=== PATIENT | male | born 1970 | race Hispanic/Latino ===

== ENCOUNTER 2023-01-02 18:58 | Inpatient (IN) | payer MEDICARE, MEDICAID ==
[~2023-01-02 18:58] MED LIST: Iopamidol 370 76% 100 ML VIAL ONE
[2023-01-02 20:07] LABS: #Basophils 0.1 10x3/uL (0.0-0.2); %Basophils 0.5 % (0.0-2.0); %Eosinophils 0.2 % (0.0-6.0); %Lymphocytes 12.2 % (18.0-47.0); %Monocytes 4.5 % (0.0-10.0); %Neutrophils 81.8 % (40.0-75.0); Hemoglobin 16.9 g/dL (13.5-17.5); Mean Corpuscular HGB CONC 37.1 g/dL (32.0-36.0); Mean Corpuscular Hemoglobin 34.6 pg (27.0-33.0); Mean Corpuscular Volume 93.4 fl (81.2-95.1); Mean Platelet Volume 10.9 fl (7.4-10.4); Platelet Count 186 10x3/uL (150-450); RBC Distribution Width 13.1 % (11.5-14.5); Red Blood Cell (RBC) Count 4.88 10x6/uL (4.32-5.72)
[2023-01-02 20:10] LABS: Bilirubin 3+ (Negative); Blood, Urine 25 (Negative); Clarity Clear (Clear); Glucose, Urine (Dipstick) Normal (Negative); Ketone, Urine 5 mg/dL (Negative); Leukocyte 100 (Negative); Nitrite Negative (Negative); Protein, Urine (Dipstick) 30 mg/dl (Neg-Trace)
[2023-01-02 20:19] LABS: ALT (SGPT) 76 U/L (8-55); AST (SGOT) 116 U/L (5-34); Albumin 3.7 g/dL (3.5-5.0); Alkaline Phosphatase 64 U/L (40-110); Anion Gap 16 mmol/L (10-20); BUN (Urea Nitrogen) 26 mg/dL (8.4-25.7); Bilirubin, Total 1.7 mg/dL (0.2-1.2); CK (CPK) 208 U/L (30-200); Calc. Creatinine Clearance 0 mL/min (70-130); Calcium 8.5 mg/dL (7.8-10.44); Carbon Dioxide 21 mmol/L (22-29); Chloride 92 mmol/L (98-107); Estimated GFR 58; Globulin 3.4 g/dL (2.4-3.5); Glucose 109 mg/dL (70-105); Lipase 94 U/L (8-78); Protein, Total 7.1 g/dL (6.0-8.3); Sodium 125 mmol/L (136-145)
[2023-01-02 20:27] LABS: INR-International Normal Ratio 1.3; MDiff Complete? YES; Manual Diff?? YES; PTT 33.3 sec (22.0-33.0); Prothrombin Time 13.6 sec (9.5-12.1)
[2023-01-02 20:28] LABS: Squamous Epithelial 0-3 HPF (0-3)
[2023-01-02 20:29] LABS: Bacteria/HPF 3+ HPF (None Seen); Mucous/LPF 2+ LPF (<2+)
[2023-01-02 20:33] LABS: Band 21 % (5-11); Lymphocytes 6 % (21-51); Metamyelocyte 4 % (0-0); Monocytes 1 % (0-10); Myelocyte 1 % (0-0); Neutrophil 66 % (42-75)
[2023-01-02 20:34] LABS: Platelet Morphology Comment Appears Adequate
[2023-01-02 20:35] LABS: RBC Morphology Normal
[2023-01-02] MEDS ORDERED: Multivitamins, Adult 10 ML, Thiamine HCl 100 MG, Folic Acid 1 MG in Dextrose 5 %-0.45 %... IV ONE (20:45)
[2023-01-02] MEDS ORDERED: Piperacillin/Tazobactam 3.375 GM VIAL ONE (21:22)
[2023-01-02] MEDS ORDERED: Ondansetron PF 4 MG/2 ML Vial IVP PRN (22:35)
[2023-01-02] MEDS ORDERED: Ondansetron ODT 4 MG TAB PO PRN (22:35)
[2023-01-02 22:44] LABS: Lactic Acid 2.5 mmol/L (0.5-2.2)
[2023-01-02] MEDS ORDERED: Potassium Chloride 20 MEQ in Lactated Ringer's 1,000 ML IV SCH (23:00)
[2023-01-02 23:18] LABS: Magnesium 2.3 mg/dL (1.6-2.6)
[2023-01-03] MEDS: Sodium Chloride 0.9% 1,000 ML IV SCH ×4 (01:30→13:12)
[2023-01-03] MEDS ORDERED: Piperacillin/Tazobactam 3.375 GM VIAL ONE ×2 (01:58→09:40)
[2023-01-03] MEDS: Piperacillin/Tazobactam 3.375 GM in Sodium Chloride 0.9% 100 ML IVPB SCH ×3 (02:19→17:50)
[2023-01-03 04:19] LABS: Hemoglobin 14.1 g/dL (13.5-17.5); Mean Corpuscular HGB CONC 37.2 g/dL (32.0-36.0); Mean Corpuscular Hemoglobin 35.1 pg (27.0-33.0); Mean Corpuscular Volume 94.3 fl (81.2-95.1); Platelet Count 171 10x3/uL (150-450); RBC Distribution Width 13.2 % (11.5-14.5); Red Blood Cell (RBC) Count 4.02 10x6/uL (4.32-5.72); White Blood Cell (WBC) Count 12.1 10x3/uL (3.5-10.5)
[2023-01-03 04:20] LABS: MDiff Complete? YES
[2023-01-03] MEDS ORDERED: Acetaminophen 325 MG TAB PO SCH (04:30)
[2023-01-03] MEDS ORDERED: VANCOMYCIN 1.75 GM/350 ML BAG 1.75 GM in Premix Bag 1 BAG IVPB ONE (04:30)
[2023-01-03] MEDS ORDERED: VANCOMYCIN 1.75 GM/350 ML BAG IVPB SCH (04:30)
[2023-01-03] MEDS ORDERED: Acetaminophen 325 MG TAB ONE (04:33)
[2023-01-03 04:40] LABS: Lactic Acid 1.4 mmol/L (0.5-2.2)
[2023-01-03 04:49] LABS: Band 24 % (5-11); Lymphocytes 8 % (21-51); Monocytes 6 % (0-10); Neutrophil 62 % (42-75)
[2023-01-03 04:50] LABS: Platelet Morphology Comment Appears Adequate; RBC Morphology Normal
[2023-01-03 04:54] LABS: ALT (SGPT) 55 U/L (8-55); AST (SGOT) 85 U/L (5-34); Albumin 2.8 g/dL (3.5-5.0); Alkaline Phosphatase 49 U/L (40-110); Anion Gap 12 mmol/L (10-20); BUN (Urea Nitrogen) 17 mg/dL (8.4-25.7); Bilirubin, Total 1.4 mg/dL (0.2-1.2); Calc. Creatinine Clearance 0 mL/min (70-130); Carbon Dioxide 19 mmol/L (22-29); Chloride 101 mmol/L (98-107); Estimated GFR 105; Globulin 2.6 g/dL (2.4-3.5); Glucose 113 mg/dL (70-105); Lipase 66 U/L (8-78); Potassium 3.6 mmol/L (3.5-5.1); Protein, Total 5.4 g/dL (6.0-8.3); Sodium 128 mmol/L (136-145)
[2023-01-03 05:03] LABS: HBSAg Index 0.15 S/CO (0-0.99); Hep B Surf Ag Non-Reactive S/CO (NonReactive)
[2023-01-03] MEDS ORDERED: Thiamine HCl 200 MG/2 ML VIAL ONE ×2 (05:30→09:40)
[2023-01-03] MEDS ORDERED: Lorazepam 1 MG TAB PO PRN (08:59)
[2023-01-03] MEDS ORDERED: Lorazepam 2 MG/ML VIAL IM PRN (08:59)
[2023-01-03] MEDS ORDERED: Multivit, Therapeutic 1 TAB PO SCH (09:00)
[2023-01-03] MEDS ORDERED: Lactated Ringer's 1,000 ML IV SCH (09:15)
[2023-01-03] MEDS ORDERED: Lorazepam 1 MG TAB ONE (09:39)
[2023-01-03] MEDS: Lorazepam 1 MG TAB PO SCH ×3 (09:50→21:09)
[2023-01-03] MEDS: Thiamine HCl 200 MG/2 ML VIAL SLOW IVP SCH (09:50)
[2023-01-03 14:10] LABS: Hep C IgG Ab Non-Reactive S/CO (NonReactive); Hep C Index 0.26 S/CO (0-0.79)
[2023-01-03 15:00] LABS: Anion Gap 15 mmol/L (10-20); Carbon Dioxide 19 mmol/L (22-29); Chloride 102 mmol/L (98-107); Potassium 4.1 mmol/L (3.5-5.1); Sodium 132 mmol/L (136-145)
[2023-01-03] MEDS: Vancomycin HCl 1 GM in Sodium Chloride 0.9% 250 ML 250 ML IVPB SCH (15:39)
[2023-01-03] MEDS ORDERED: Acetaminophen 500 MG TAB PO SCH (16:15)
[2023-01-03] MEDS: Dextrose 5%-Lactated Ringers 1,000 ML IV SCH (16:20)
[2023-01-03] MEDS ORDERED: Multivitamins, Adult 10 ML, Folic Acid 1 MG, Thiamine HCl 100 MG in Dextrose 5 %-0.45 %... IV SCH (21:00)
[2023-01-04] MEDS: Acetaminophen 325 MG TAB PO PRN ×2 (00:31→08:33)
[2023-01-04 01:13] LABS: Actual Bicarbonate (HCO3a) 17.2 mEq/L (22-28); Base Excess (BEa) -3.8 mEq/L (-2.0 to +3.0); CO2 Tension 22.9 mmHg (35.0-45.0); Calcium, Ionized (arterial) 1.04 mmol/L (1.12-1.30); Carboxyhemoglobin (COHb) 0.7 gm% (0.0-3.0); Hematocrit-ABG 45 % (42.0-52.0); Hemoglobin (Hb) 15.4 g/dL (14.0-18.0); O2 Tension (PaO2), arterial 64.1 mmHg (80.0-100.0); Puncture Site LRA; pH, Arterial 7.493 (7.35-7.45)
[2023-01-04 01:16] LABS: ALV-art Gradient 163.955 mmHg (0-20)
[2023-01-04] MEDS: Piperacillin/Tazobactam 3.375 GM in Sodium Chloride 0.9% 100 ML IVPB SCH ×3 (02:29→18:39)
[2023-01-04] MEDS ORDERED: Lactated Ringer's 1,000 ML IV SCH (02:30)
[2023-01-04] MEDS: Vancomycin HCl 1 GM in Sodium Chloride 0.9% 250 ML 250 ML IVPB SCH ×2 (03:08→15:23)
[2023-01-04] MEDS: Lorazepam 1 MG TAB PO SCH ×3 (03:08→15:24)
[2023-01-04 04:04] LABS: Hemoglobin 14.3 g/dL (13.5-17.5); Mean Corpuscular HGB CONC 36.9 g/dL (32.0-36.0); Mean Corpuscular Volume 95.1 fl (81.2-95.1); Mean Platelet Volume 12.1 fl (7.4-10.4); Platelet Count 198 10x3/uL (150-450); RBC Distribution Width 13.2 % (11.5-14.5); Red Blood Cell (RBC) Count 4.08 10x6/uL (4.32-5.72); White Blood Cell (WBC) Count 15.7 10x3/uL (3.5-10.5)
[2023-01-04 04:15] LABS: ALT (SGPT) 53 U/L (8-55); AST (SGOT) 90 U/L (5-34); Albumin 2.7 g/dL (3.5-5.0); Alkaline Phosphatase 57 U/L (40-110); Anion Gap 12 mmol/L (10-20); BUN (Urea Nitrogen) 9 mg/dL (8.4-25.7); Bilirubin, Total 1.7 mg/dL (0.2-1.2); Calc. Creatinine Clearance 127 mL/min (70-130); Calcium 7.5 mg/dL (7.8-10.44); Carbon Dioxide 18 mmol/L (22-29); Chloride 101 mmol/L (98-107); Estimated GFR 111; Globulin 2.7 g/dL (2.4-3.5); Glucose 96 mg/dL (70-105); Potassium 3.4 mmol/L (3.5-5.1); Protein, Total 5.4 g/dL (6.0-8.3); Sodium 128 mmol/L (136-145)
[2023-01-04 04:54] LABS: SARS-CoV-2 NAA Rapid Test Not Detected (NotDetected)
[2023-01-04] MEDS: Dextrose 5%-Lactated Ringers 1,000 ML IV SCH (08:03)
[2023-01-04] MEDS: Thiamine HCl 200 MG/2 ML VIAL SLOW IVP SCH (08:34)
[2023-01-04] MEDS ORDERED: Lorazepam 1 MG TAB PO PRN (08:59)
[2023-01-04] MEDS ORDERED: diphenhydrAMINE 10 MG in Sodium Chloride 0.9% 50 ML IVPB SCH (11:00)
[2023-01-04] MEDS ORDERED: Ketorolac Tromethamine 30 MG/ML VIAL IVP SCH (11:00)
[2023-01-04] MEDS ORDERED: diphenhydrAMINE 50 MG/ML VIAL IVP SCH (11:15)
[2023-01-04] MEDS ORDERED: Rocuronium Bromide 10 MG/ML (10ML VIAL) ONE (14:00)
[2023-01-04] MEDS ORDERED: Potassium Chloride 20 MEQ TAB PO SCH (15:00)
[2023-01-04 15:56] LABS: Vancomycin, Trough 5.6 ug/mL
[2023-01-04] MEDS: Sodium Chloride 0.9% 1,000 ML IV SCH (16:10)
[2023-01-04] MEDS ORDERED: Lorazepam 2 MG/ML VIAL SLOW IVP SCH ×3 (17:50→21:00)
[2023-01-04] MEDS ORDERED: Lorazepam 2 MG/ML VIAL ONE (17:54)
[2023-01-04] MEDS ORDERED: Labetalol HCl 100 MG/20 ML VIAL SLOW IVP SCH (18:00)
[2023-01-04] MEDS ORDERED: Labetalol HCl 100 MG/20 ML VIAL ONE (18:04)
[2023-01-04] MEDS ORDERED: Labetalol HCl 100 MG/20 ML VIAL SLOW IVP PRN (18:08)
[2023-01-04] MEDS ORDERED: Lorazepam 2 MG/ML VIAL SLOW IVP PRN ×2 (18:15→22:33)
[2023-01-04 19:00] LABS: Anion Gap 15 mmol/L (10-20); BUN (Urea Nitrogen) 9 mg/dL (8.4-25.7); Calc. Creatinine Clearance 133 mL/min (70-130); Calcium 7.8 mg/dL (7.8-10.44); Carbon Dioxide 17 mmol/L (22-29); Chloride 102 mmol/L (98-107); Estimated GFR 113; Glucose 88 mg/dL (70-105); Potassium 3.7 mmol/L (3.5-5.1); Sodium 130 mmol/L (136-145)
[2023-01-04] MEDS ORDERED: Thiamine HCl 200 MG/2 ML VIAL SLOW IVP SCH (21:45)
[2023-01-04] MEDS: VANCOMYCIN 1.25 GM/250 ML BAG 1.25 GM in Premix Bag 1 BAG IVPB SCH (22:24)
[2023-01-04] MEDS ORDERED: Propofol 1,000 MG/100 ML VIAL IV PRN (22:45)
[2023-01-04] MEDS ORDERED: Propofol 1,000 MG/100 ML VIAL IV SCH (22:45)
[2023-01-05 01:04] LABS: Actual Bicarbonate (HCO3a) 19.4 mEq/L (22-28); Base Excess (BEa) -2.9 mEq/L (-2.0 to +3.0); CO2 Tension 27.7 mmHg (35.0-45.0); Calcium, Ionized (arterial) 1.05 mmol/L (1.12-1.30); Hematocrit-ABG 42 % (42.0-52.0); Hemoglobin (Hb) 14.4 g/dL (14.0-18.0); O2 Tension (PaO2), arterial 78.3 mmHg (80.0-100.0); Potassium - ABG Lab 3.62 mmol/L (3.70-5.30); Puncture Site RBA; pH, Arterial 7.463 (7.35-7.45)
[2023-01-05 01:09] LABS: ALV-art Gradient 314.875 mmHg (0-20)
[2023-01-05] MEDS: Sodium Chloride 0.9% 1,000 ML IV SCH ×2 (01:47→11:25)
[2023-01-05] MEDS: FENTANYL 2,000MCG/100-0.9%NACL 100 ML IVPB SCH ×3 (02:03→23:45)
[2023-01-05] MEDS ORDERED: DISCONTINUE PREVIOUS NARCOTIC PAIN MEDICATIONS AND BENZODIAZEPINES FS SCH (02:15)
[2023-01-05] MEDS ORDERED: Propofol BOLUS 1,000 MG/100 ML VIAL IV PRN (02:15)
[2023-01-05] MEDS ORDERED: Fentanyl BOLUS 250 ML IVPB PRN (02:15)
[2023-01-05] MEDS ORDERED: Morphine 2 MG/ML VIAL SLOW IVP PRN (02:15)
[2023-01-05] MEDS: Piperacillin/Tazobactam 3.375 GM in Sodium Chloride 0.9% 100 ML IVPB SCH ×3 (02:21→17:05)
[2023-01-05] MEDS ORDERED: NOREPINEPHRINE 8 MG/250 ML-D5W 250 ML ONE (03:19)
[2023-01-05] MEDS: NOREPINEPHRINE 8 MG/250 ML-D5W 250 ML IVPB SCH ×2 (03:23→18:41)
[2023-01-05 04:36] LABS: Hemoglobin 13.5 g/dL (13.5-17.5); Mean Corpuscular HGB CONC 36.5 g/dL (32.0-36.0); Mean Corpuscular Hemoglobin 34.7 pg (27.0-33.0); Mean Corpuscular Volume 95.1 fl (81.2-95.1); Mean Platelet Volume 11.9 fl (7.4-10.4); Platelet Count 256 10x3/uL (150-450); RBC Distribution Width 13.6 % (11.5-14.5); Red Blood Cell (RBC) Count 3.89 10x6/uL (4.32-5.72); White Blood Cell (WBC) Count 15.6 10x3/uL (3.5-10.5)
[2023-01-05 04:49] LABS: ALT (SGPT) 56 U/L (8-55); AST (SGOT) 113 U/L (5-34); Albumin 2.5 g/dL (3.5-5.0); Alkaline Phosphatase 106 U/L (40-110); Anion Gap 12 mmol/L (10-20); BUN (Urea Nitrogen) 10 mg/dL (8.4-25.7); Bilirubin, Total 2.5 mg/dL (0.2-1.2); Calc. Creatinine Clearance 129 mL/min (70-130); Calcium 7.3 mg/dL (7.8-10.44); Carbon Dioxide 19 mmol/L (22-29); Chloride 104 mmol/L (98-107); Estimated GFR 112; Globulin 2.7 g/dL (2.4-3.5); Glucose 115 mg/dL (70-105); Magnesium 2.3 mg/dL (1.6-2.6); Protein, Total 5.2 g/dL (6.0-8.3); Sodium 131 mmol/L (136-145)
[2023-01-05 04:57] LABS: MDiff Complete? YES
[2023-01-05 04:58] LABS: D-Dimer Test 2.28 mg/L FEU (0.19-0.50); INR-International Normal Ratio 1.3; PTT 33.6 sec (22.0-33.0); Prothrombin Time 13.5 sec (9.5-12.1)
[2023-01-05 05:05] LABS: Syphilis Antibody Nonreactive (Nonreactive); Syphilis Antibody Index 0.05 S/CO (<1.00 Non-Reactive)
[2023-01-05 05:24] LABS: Actual Bicarbonate (HCO3a) 18.5 mEq/L (22-28); Base Excess (BEa) -5.7 mEq/L (-2.0 to +3.0); CO2 Tension 32.9 mmHg (35.0-45.0); Calcium, Ionized (arterial) 1.05 mmol/L (1.12-1.30); Carboxyhemoglobin (COHb) 0.2 gm% (0.0-3.0); Hematocrit-ABG 43 % (42.0-52.0); Hemoglobin (Hb) 14.5 g/dL (14.0-18.0); O2 Tension (PaO2), arterial 120.4 mmHg (80.0-100.0); Potassium - ABG Lab 3.71 mmol/L (3.70-5.30); Puncture Site RBA; pH, Arterial 7.369 (7.35-7.45)
[2023-01-05 05:28] LABS: ALV-art Gradient 266.275 mmHg (0-20)
[2023-01-05 05:44] LABS: Band 19 % (5-11); Lymphocytes 14 % (21-51); Monocytes 5 % (0-10); Neutrophil 62 % (42-75)
[2023-01-05 05:46] LABS: Platelet Morphology Comment Appears Adequate; RBC Morphology Normal
[2023-01-05] MEDS: VANCOMYCIN 1.25 GM/250 ML BAG 1.25 GM in Premix Bag 1 BAG IVPB SCH ×3 (05:59→21:26)
[2023-01-05] MEDS: Propofol 1,000 MG/100 ML VIAL IV PRN ×2 (06:03→14:02)
[2023-01-05 08:02] LABS: Actual Bicarbonate (HCO3a) 18.8 mEq/L (22-28); Base Excess (BEa) -8.2 mEq/L (-2.0 to +3.0); CO2 Tension 43.6 mmHg (35.0-45.0); Calcium, Ionized (arterial) 1.11 mmol/L (1.12-1.30); Carboxyhemoglobin (COHb) 0.4 gm% (0.0-3.0); Hematocrit-ABG 48 % (42.0-52.0); Hemoglobin (Hb) 16.3 g/dL (14.0-18.0); O2 Tension (PaO2), arterial 265.6 mmHg (80.0-100.0); Potassium - ABG Lab 4.03 mmol/L (3.70-5.30); Puncture Site RBA; RapidComm Collect By CP.BR1; pH, Arterial 7.252 (7.35-7.45)
[2023-01-05] MEDS: Thiamine HCl 200 MG/2 ML VIAL SLOW IVP SCH (08:53)
[2023-01-05] MEDS ORDERED: Lorazepam 2 MG/ML VIAL SLOW IVP PRN (08:59)
[2023-01-05] MEDS ORDERED: Lorazepam 2 MG/ML VIAL SLOW IVP SCH ×2 (09:00)
[2023-01-05] MEDS ORDERED: Lorazepam 0.5 MG TAB PO SCH (09:00)
[2023-01-05 09:34] LABS: Lactic Acid 1.6 mmol/L (0.5-2.2)
[2023-01-05] MEDS: Lorazepam 2 MG/ML VIAL SLOW IVP PRN (12:30)
[2023-01-05] MEDS ORDERED: Rocuronium Bromide 50 MG/5 ML VIAL IVP SCH (13:00)
[2023-01-05] MEDS: Ipratropium/Albuterol 3 ML NEB EZPAP PRN ×3 (13:30→23:00)
[2023-01-05] MEDS: Acetaminophen 325 MG TAB PO PRN (16:02)
[2023-01-05] MEDS ORDERED: Rocuronium Bromide 10 MG/ML (10ML VIAL) ONE (18:18)
[2023-01-05] MEDS: Famotidine 20 MG TAB PO SCH (21:25)
[2023-01-05] MEDS: Folic Acid 1 MG TAB PO SCH (21:25)
[2023-01-05] MEDS: Multivitamin W/ Minerals 1 TAB PO SCH (21:25)
[2023-01-05 22:15] LABS: Vancomycin, Trough 18.8 ug/mL
[2023-01-06] MEDS: Acetaminophen 325 MG TAB PO PRN ×2 (00:54→18:24)
[2023-01-06] MEDS: Piperacillin/Tazobactam 3.375 GM in Sodium Chloride 0.9% 100 ML IVPB SCH ×3 (01:01→18:33)
[2023-01-06] MEDS: Ipratropium/Albuterol 3 ML NEB EZPAP PRN ×2 (02:30→07:19)
[2023-01-06] MEDS: Propofol 1,000 MG/100 ML VIAL IV PRN ×4 (02:50→19:37)
[2023-01-06 04:06] LABS: Hemoglobin 13.1 g/dL (13.5-17.5); Mean Corpuscular HGB CONC 35.9 g/dL (32.0-36.0); Mean Corpuscular Hemoglobin 34.4 pg (27.0-33.0); Mean Corpuscular Volume 95.8 fl (81.2-95.1); Mean Platelet Volume 11.4 fl (7.4-10.4); Platelet Count 350 10x3/uL (150-450); RBC Distribution Width 14.5 % (11.5-14.5); Red Blood Cell (RBC) Count 3.81 10x6/uL (4.32-5.72); White Blood Cell (WBC) Count 15.1 10x3/uL (3.5-10.5)
[2023-01-06 04:12] LABS: MDiff Complete? YES
[2023-01-06 04:21] LABS: ALT (SGPT) 57 U/L (8-55); AST (SGOT) 99 U/L (5-34); Albumin 2.3 g/dL (3.5-5.0); Alkaline Phosphatase 101 U/L (40-110); Anion Gap 12 mmol/L (10-20); BUN (Urea Nitrogen) 8 mg/dL (8.4-25.7); Bilirubin, Direct 2.3 mg/dL (0.1-0.3); Bilirubin, Total 3.1 mg/dL (0.2-1.2); Calc. Creatinine Clearance 122 mL/min (70-130); Calcium 7.3 mg/dL (7.8-10.44); Carbon Dioxide 20 mmol/L (22-29); Chloride 102 mmol/L (98-107); Estimated GFR 110; Glucose 153 mg/dL (70-105); Potassium 3.3 mmol/L (3.5-5.1); Protein, Total 5.1 g/dL (6.0-8.3); Sodium 131 mmol/L (136-145)
[2023-01-06 04:52] LABS: Band 19 % (5-11); Eosinophils 1 % (0-10); Lymphocytes 12 % (21-51); Monocytes 4 % (0-10); Neutrophil 64 % (42-75); Nucleated RBC (Manual Ct) 2 % (0)
[2023-01-06 04:54] LABS: Platelet Morphology Comment Appears Adequate; RBC Morphology Normal
[2023-01-06 04:57] LABS: Vancomycin, Trough 21.6 ug/mL
[2023-01-06] MEDS: Vancomycin HCl 1 GM in Sodium Chloride 0.9% 250 ML 250 ML IVPB SCH ×3 (05:34→21:24)
[2023-01-06] MEDS: VANCOMYCIN 1.25 GM/250 ML BAG 1.25 GM in Premix Bag 1 BAG IVPB SCH (06:21)
[2023-01-06] MEDS ORDERED: Potassium Bicarbonate/Cit Ac 20 MEQ TAB PO SCH (06:45)
[2023-01-06] MEDS: FENTANYL 2,000MCG/100-0.9%NACL 100 ML IVPB SCH ×2 (08:43→19:37)
[2023-01-06] MEDS: Famotidine 20 MG TAB PO SCH ×2 (08:43→21:23)
[2023-01-06] MEDS: Thiamine 100 MG TAB PO SCH (08:44)
[2023-01-06] MEDS ORDERED: Lorazepam 2 MG/ML VIAL SLOW IVP PRN (08:59)
[2023-01-06] MEDS: NOREPINEPHRINE 8 MG/250 ML-D5W 250 ML IVPB SCH (13:08)
[2023-01-06] MEDS ORDERED: Tuberculin PPD 0.1 ML VIAL I-DERMAL SCH (21:00)
[2023-01-06] MEDS: Folic Acid 1 MG TAB PO SCH (21:24)
[2023-01-06] MEDS: Multivitamin W/ Minerals 1 TAB PO SCH (21:24)
[2023-01-06 22:52] LABS: Anion Gap 13 mmol/L (10-20); BUN (Urea Nitrogen) 6 mg/dL (8.4-25.7); Calc. Creatinine Clearance 140 mL/min (70-130); Calcium 7.5 mg/dL (7.8-10.44); Carbon Dioxide 23 mmol/L (22-29); Chloride 101 mmol/L (98-107); Estimated GFR 110; Glucose 148 mg/dL (70-105); Potassium 3.5 mmol/L (3.5-5.1); Sodium 133 mmol/L (136-145)
[2023-01-07] MEDS: Piperacillin/Tazobactam 3.375 GM in Sodium Chloride 0.9% 100 ML IVPB SCH ×3 (02:21→17:36)
[2023-01-07] MEDS: Propofol 1,000 MG/100 ML VIAL IV PRN ×4 (03:08→19:56)
[2023-01-07] MEDS: FENTANYL 2,000MCG/100-0.9%NACL 100 ML IVPB SCH ×3 (03:44→23:28)
[2023-01-07 04:48] LABS: Hemoglobin 12.5 g/dL (13.5-17.5); Mean Corpuscular HGB CONC 36.3 g/dL (32.0-36.0); Mean Corpuscular Hemoglobin 34.9 pg (27.0-33.0); Mean Corpuscular Volume 96.1 fl (81.2-95.1); Mean Platelet Volume 11.2 fl (7.4-10.4); Platelet Count 426 10x3/uL (150-450); RBC Distribution Width 14.5 % (11.5-14.5); Red Blood Cell (RBC) Count 3.58 10x6/uL (4.32-5.72); White Blood Cell (WBC) Count 13.4 10x3/uL (3.5-10.5)
[2023-01-07 04:49] LABS: MDiff Complete? YES
[2023-01-07 05:01] LABS: ALT (SGPT) 46 U/L (8-55); AST (SGOT) 85 U/L (5-34); Albumin 2.1 g/dL (3.5-5.0); Alkaline Phosphatase 115 U/L (40-110); Anion Gap 12 mmol/L (10-20); BUN (Urea Nitrogen) 6 mg/dL (8.4-25.7); Bilirubin, Total 3.2 mg/dL (0.2-1.2); Calc. Creatinine Clearance 148 mL/min (70-130); Calcium 7.4 mg/dL (7.8-10.44); Carbon Dioxide 24 mmol/L (22-29); Chloride 101 mmol/L (98-107); Estimated GFR 112; Globulin 2.9 g/dL (2.4-3.5); Glucose 152 mg/dL (70-105); Potassium 3.3 mmol/L (3.5-5.1); Sodium 134 mmol/L (136-145)
[2023-01-07 05:25] LABS: Vancomycin, Trough 12.5 ug/mL
[2023-01-07] MEDS: Vancomycin HCl 1 GM in Sodium Chloride 0.9% 250 ML 250 ML IVPB SCH ×4 (06:02→23:28)
[2023-01-07 06:17] LABS: Band 4 % (5-11); Eosinophils 2 % (0-10); Lymphocytes 14 % (21-51); Monocytes 4 % (0-10); Neutrophil 75 % (42-75); Nucleated RBC (Manual Ct) 2 % (0); Reactive Lymphocytes 1 % (0-10)
[2023-01-07 06:19] LABS: RBC Morph Comment NORMAL
[2023-01-07 06:20] LABS: Large Platelets SLIGHT; Platelet Clumps SLIGHT; Platelet Morphology Comment Appears Increased
[2023-01-07] MEDS: Ipratropium/Albuterol 3 ML NEB EZPAP PRN (07:44)
[2023-01-07] MEDS: Famotidine 20 MG TAB PO SCH ×2 (08:20→21:22)
[2023-01-07] MEDS: Thiamine 100 MG TAB PO SCH (08:20)
[2023-01-07] MEDS: NOREPINEPHRINE 8 MG/250 ML-D5W 250 ML IVPB SCH (08:59)
[2023-01-07] MEDS ORDERED: Furosemide 40 MG/4 ML VIAL SLOW IVP SCH (11:00)
[2023-01-07] MEDS: Acetaminophen 325 MG TAB PO PRN (11:27)
[2023-01-07] MEDS: Folic Acid 1 MG TAB PO SCH (21:22)
[2023-01-07] MEDS: Multivitamin W/ Minerals 1 TAB PO SCH (21:22)
[2023-01-08] MEDS: Propofol 1,000 MG/100 ML VIAL IV PRN ×5 (01:47→23:41)
[2023-01-08] MEDS: Piperacillin/Tazobactam 3.375 GM in Sodium Chloride 0.9% 100 ML IVPB SCH ×3 (01:47→17:20)
[2023-01-08] MEDS: Acetaminophen 325 MG TAB PO PRN ×2 (02:25→21:15)
[2023-01-08 05:13] LABS: Hemoglobin 12.5 g/dL (13.5-17.5); Mean Corpuscular HGB CONC 36.2 g/dL (32.0-36.0); Mean Corpuscular Volume 96.6 fl (81.2-95.1); Mean Platelet Volume 10.9 fl (7.4-10.4); Platelet Count 511 10x3/uL (150-450); RBC Distribution Width 14.7 % (11.5-14.5); Red Blood Cell (RBC) Count 3.57 10x6/uL (4.32-5.72); White Blood Cell (WBC) Count 13.2 10x3/uL (3.5-10.5)
[2023-01-08 05:20] LABS: ALT (SGPT) 45 U/L (8-55); AST (SGOT) 97 U/L (5-34); Albumin 2.3 g/dL (3.5-5.0); Alkaline Phosphatase 173 U/L (40-110); Anion Gap 14 mmol/L (10-20); BUN (Urea Nitrogen) 7 mg/dL (8.4-25.7); Bilirubin, Total 2.2 mg/dL (0.2-1.2); Calc. Creatinine Clearance 136 mL/min (70-130); Calcium 7.8 mg/dL (7.8-10.44); Carbon Dioxide 26 mmol/L (22-29); Chloride 100 mmol/L (98-107); Estimated GFR 109; Globulin 3.4 g/dL (2.4-3.5); Glucose 149 mg/dL (70-105); Potassium 3.1 mmol/L (3.5-5.1); Protein, Total 5.7 g/dL (6.0-8.3); Sodium 137 mmol/L (136-145)
[2023-01-08 05:23] LABS: MDiff Complete? YES
[2023-01-08 05:29] LABS: HIV (1/2) Antibody/Antigen Non-Reactive (NonReactive); HIV 1/2 INDEX 0.08 S/CO (<1.00)
[2023-01-08 06:37] LABS: Band 6 % (5-11); Eosinophils 2 % (0-10); Lymphocytes 7 % (21-51); Monocytes 6 % (0-10); Neutrophil 79 % (42-75); Nucleated RBC (Manual Ct) 8 % (0)
[2023-01-08 06:39] LABS: Platelet Morphology Comment Appears Adequate; RBC Morph Comment NORMAL
[2023-01-08 07:26] LABS: Vancomycin, Trough 12.7 ug/mL
[2023-01-08 07:33] LABS: Magnesium 2.2 mg/dL (1.6-2.6)
[2023-01-08] MEDS: Famotidine 20 MG TAB PO SCH ×2 (09:16→21:16)
[2023-01-08] MEDS: Thiamine 100 MG TAB PO SCH (09:16)
[2023-01-08] MEDS: Vancomycin HCl 1 GM in Sodium Chloride 0.9% 250 ML 250 ML IVPB SCH ×3 (09:17→23:57)
[2023-01-08] MEDS ORDERED: Furosemide 40 MG/4 ML VIAL SLOW IVP SCH (10:00)
[2023-01-08] MEDS ORDERED: Potassium Chloride 20 MEQ in Premix Bag 1 BAG IVPB SCH (10:00)
[2023-01-08] MEDS: FENTANYL 2,000MCG/100-0.9%NACL 100 ML IVPB SCH ×2 (12:30→20:32)
[2023-01-08] MEDS ORDERED: Docusate Sodium 100 MG/10 ML UDCUP PO PRN (13:50)
[2023-01-08] MEDS ORDERED: Milk Of Magnesia 30 ML UDCUP PO PRN (13:52)
[2023-01-08] MEDS ORDERED: Dexmedetomidine In 0.9 % NaCl 400 MCG in Premix Bag 1 BAG IVPB SCH (17:15)
[2023-01-08] MEDS: NOREPINEPHRINE 8 MG/250 ML-D5W 250 ML IVPB SCH (20:32)
[2023-01-08] MEDS: Multivitamin W/ Minerals 1 TAB PO SCH (21:15)
[2023-01-08] MEDS: READ PPD TEST SITE PO SCH (21:16)
[2023-01-08] MEDS: Folic Acid 1 MG TAB PO SCH (21:16)
[2023-01-09 01:57] VITALS: TEMP 97.8
[2023-01-09] MEDS: Piperacillin/Tazobactam 3.375 GM in Sodium Chloride 0.9% 100 ML IVPB SCH ×3 (02:37→19:12)
[2023-01-09 04:16] LABS: Anion Gap 13 mmol/L (10-20); BUN (Urea Nitrogen) 7 mg/dL (8.4-25.7); Calc. Creatinine Clearance 149 mL/min (70-130); Carbon Dioxide 27 mmol/L (22-29); Chloride 103 mmol/L (98-107); Estimated GFR 111; Glucose 165 mg/dL (70-105); Potassium 3.1 mmol/L (3.5-5.1); Sodium 140 mmol/L (136-145)
[2023-01-09] MEDS: Midodrine HCl 5 MG TAB PO SCH ×2 (05:31→14:21)
[2023-01-09] MEDS: Propofol 1,000 MG/100 ML VIAL IV PRN (05:32)
[2023-01-09 07:17] LABS: Vancomycin, Trough 14.7 ug/mL
[2023-01-09] MEDS: Famotidine 20 MG TAB PO SCH ×2 (08:01→21:32)
[2023-01-09] MEDS: Thiamine 100 MG TAB PO SCH (08:02)
[2023-01-09] MEDS: Vancomycin HCl 1 GM in Sodium Chloride 0.9% 250 ML 250 ML IVPB SCH ×2 (08:05→16:56)
[2023-01-09] MEDS: FENTANYL 2,000MCG/100-0.9%NACL 100 ML IVPB SCH (08:12)
[2023-01-09] MEDS: Dexmedetomidine In 0.9 % NaCl 400 MCG in Premix Bag 1 BAG IVPB SCH ×4 (11:01→20:42)
[2023-01-09] MEDS: Acetaminophen 325 MG TAB PO PRN (11:40)
[2023-01-09] MEDS ORDERED: Potassium Chloride 40 MEQ in Premix Bag 1 BAG IVPB SCH (14:00)
[2023-01-09] MEDS ORDERED: Electrolyte Replacement Protocol 1 EACH FS SCH (14:00)
[2023-01-09] MEDS: Potassium Chloride 20 MEQ in Premix Bag 1 BAG IVPB SCH ×2 (15:14→16:58)
[2023-01-09] MEDS ORDERED: Furosemide 20 MG/2 ML VIAL SLOW IVP SCH (17:00)
[2023-01-09] MEDS ORDERED: Furosemide 40 MG/4 ML VIAL SLOW IVP SCH (17:30)
[2023-01-09] MEDS: Folic Acid 1 MG TAB PO SCH (21:32)
[2023-01-09] MEDS: Multivitamin W/ Minerals 1 TAB PO SCH (21:32)
[2023-01-09] MEDS: Lorazepam 2 MG/ML VIAL SLOW IVP PRN (21:57)
[2023-01-09] MEDS: READ PPD TEST SITE PO SCH (22:33)
[2023-01-10] MEDS: Dexmedetomidine In 0.9 % NaCl 400 MCG in Premix Bag 1 BAG IVPB SCH ×5 (00:13→16:32)
[2023-01-10] MEDS: Piperacillin/Tazobactam 3.375 GM in Sodium Chloride 0.9% 100 ML IVPB SCH ×3 (02:58→17:41)
[2023-01-10 03:26] LABS: Hemoglobin 12.3 g/dL (13.5-17.5); Mean Corpuscular HGB CONC 35.5 g/dL (32.0-36.0); Mean Corpuscular Hemoglobin 34.8 pg (27.0-33.0); Mean Platelet Volume 10.2 fl (7.4-10.4); Platelet Count 537 10x3/uL (150-450); RBC Distribution Width 16.4 % (11.5-14.5); Red Blood Cell (RBC) Count 3.53 10x6/uL (4.32-5.72); White Blood Cell (WBC) Count 13.4 10x3/uL (3.5-10.5)
[2023-01-10 03:37] LABS: ALT (SGPT) 32 U/L (8-55); AST (SGOT) 69 U/L (5-34); Albumin 2.6 g/dL (3.5-5.0); Alkaline Phosphatase 163 U/L (40-110); Anion Gap 12 mmol/L (10-20); BUN (Urea Nitrogen) 9 mg/dL (8.4-25.7); Bilirubin, Total 1.3 mg/dL (0.2-1.2); Calc. Creatinine Clearance 0 mL/min (70-130); Calcium 8.2 mg/dL (7.8-10.44); Carbon Dioxide 26 mmol/L (22-29); Chloride 105 mmol/L (98-107); Estimated GFR 111; Globulin 3.5 g/dL (2.4-3.5); Glucose 201 mg/dL (70-105); Potassium 3.7 mmol/L (3.5-5.1); Protein, Total 6.1 g/dL (6.0-8.3); Sodium 139 mmol/L (136-145)
[2023-01-10 03:39] LABS: MDiff Complete? YES; Manual Diff?? YES
[2023-01-10 03:43] LABS: Band 6 % (5-11); Eosinophils 4 % (0-10); Lymphocytes 30 % (21-51); Monocytes 4 % (0-10); Neutrophil 56 % (42-75); Nucleated RBC (Manual Ct) 10 % (0)
[2023-01-10 03:45] LABS: Platelet Morphology Comment Appears Increased; Polychromasia SLIGHT = 2-3 cells (100X) (0-2/hpf)
[2023-01-10] MEDS: Thiamine 100 MG TAB PO SCH (08:18)
[2023-01-10] MEDS: Famotidine 20 MG TAB PO SCH ×3 (08:18→20:45)
[2023-01-10] MEDS ORDERED: Dextrose 50% Abboject 50 ML SYRINGE SLOW IVP PRN (11:56)
[2023-01-10] MEDS ORDERED: HumaLOG 300 UNITS/3 ML VIAL SC PRN ×2 (11:56)
[2023-01-10] MEDS ORDERED: Dextrose 5% in Water 1,000 ML IV PRN (11:56)
[2023-01-10] MEDS ORDERED: Furosemide 100 MG/10 ML VIAL SLOW IVP SCH (12:30)
[2023-01-10 12:32] LABS: ANA Symphony (Qualitative) Negative (Negative); ANA Symphony (Quantitative) 0.3 Ratio (< 0.7 Negative); dsDNA IgG Antibody 0.7 IU/mL (<10 Negative)
[2023-01-10 18:10] LABS: QuantiFERON-TB Gold Plus Negative (Negative)
[2023-01-10] MEDS: Multivitamin W/ Minerals 1 TAB PO SCH ×2 (20:38→20:46)
[2023-01-10] MEDS: Folic Acid 1 MG TAB PO SCH ×2 (20:38→20:46)
[2023-01-10] MEDS ORDERED: Famotidine/PF 20 mg/2ml Vial SLOW IVP SCH (21:15)
[2023-01-11] MEDS: Piperacillin/Tazobactam 3.375 GM in Sodium Chloride 0.9% 100 ML IVPB SCH ×2 (01:21→11:35)
[2023-01-11 05:48] LABS: ALT (SGPT) 33 U/L (8-55); AST (SGOT) 68 U/L (5-34); Albumin 2.7 g/dL (3.5-5.0); Alkaline Phosphatase 134 U/L (40-110); Anion Gap 14 mmol/L (10-20); BUN (Urea Nitrogen) 11 mg/dL (8.4-25.7); Bilirubin, Total 1.2 mg/dL (0.2-1.2); Calc. Creatinine Clearance 166 mL/min (70-130); Calcium 8.4 mg/dL (7.8-10.44); Carbon Dioxide 23 mmol/L (22-29); Chloride 107 mmol/L (98-107); Estimated GFR 115; Globulin 3.4 g/dL (2.4-3.5); Glucose 95 mg/dL (70-105); Potassium 3.3 mmol/L (3.5-5.1); Protein, Total 6.1 g/dL (6.0-8.3); Sodium 141 mmol/L (136-145)
[2023-01-11 05:56] LABS: #Basophils 0.1 10x3/uL (0.0-0.2); #Eosinphils 0.1 10x3/uL (0.0-0.5); #Monocytes 0.9 10x3/uL (0.0-1.1); #Neutrophils 7.9 10x3/uL (1.5-8.4); %Basophils 0.7 % (0.0-2.0); %Eosinophils 0.8 % (0.0-6.0); %Lymphocytes 29.8 % (18.0-47.0); %Monocytes 6.8 % (0.0-10.0); %Neutrophils 60.4 % (40.0-75.0); Hemoglobin 11.6 g/dL (13.5-17.5); Mean Corpuscular HGB CONC 34.6 g/dL (32.0-36.0); Mean Corpuscular Hemoglobin 34.2 pg (27.0-33.0); Mean Corpuscular Volume 98.8 fl (81.2-95.1); Mean Platelet Volume 10.5 fl (7.4-10.4); Platelet Count 533 10x3/uL (150-450); RBC Distribution Width 16.5 % (11.5-14.5); Red Blood Cell (RBC) Count 3.39 10x6/uL (4.32-5.72); White Blood Cell (WBC) Count 13.1 10x3/uL (3.5-10.5)
[2023-01-11] MEDS: Potassium Chloride 20 MEQ in Premix Bag 1 BAG IVPB SCH ×2 (06:09→07:53)
[2023-01-11] MEDS: Famotidine 20 MG TAB PO SCH (08:16)
[2023-01-11] MEDS: Thiamine 100 MG TAB PO SCH (09:43)
[2023-01-11] MEDS: Multivitamin W/ Minerals 1 TAB PO SCH (20:06)
[2023-01-11] MEDS: Folic Acid 1 MG TAB PO SCH (20:06)
[2023-01-11] MEDS: Famotidine/PF 20 mg/2ml Vial SLOW IVP SCH (20:08)
[2023-01-12 05:26] LABS: #Basophils 0.1 10x3/uL (0.0-0.2); #Eosinphils 0.2 10x3/uL (0.0-0.5); #Monocytes 1.1 10x3/uL (0.0-1.1); #Neutrophils 6.6 10x3/uL (1.5-8.4); %Basophils 0.8 % (0.0-2.0); %Eosinophils 1.3 % (0.0-6.0); %Lymphocytes 29.1 % (18.0-47.0); %Monocytes 9.6 % (0.0-10.0); %Neutrophils 58.3 % (40.0-75.0); Hemoglobin 12.2 g/dL (13.5-17.5); Mean Corpuscular Hemoglobin 34.9 pg (27.0-33.0); Mean Corpuscular Volume 99.7 fl (81.2-95.1); Mean Platelet Volume 10.3 fl (7.4-10.4); Platelet Count 543 10x3/uL (150-450); RBC Distribution Width 16.3 % (11.5-14.5); White Blood Cell (WBC) Count 11.4 10x3/uL (3.5-10.5)
[2023-01-12 05:35] LABS: ALT (SGPT) 36 U/L (8-55); AST (SGOT) 77 U/L (5-34); Alkaline Phosphatase 128 U/L (40-110); Anion Gap 14 mmol/L (10-20); BUN (Urea Nitrogen) 10 mg/dL (8.4-25.7); Bilirubin, Total 1.3 mg/dL (0.2-1.2); Calc. Creatinine Clearance 170 mL/min (70-130); Calcium 8.4 mg/dL (7.8-10.44); Carbon Dioxide 21 mmol/L (22-29); Chloride 109 mmol/L (98-107); Estimated GFR 116; Globulin 3.5 g/dL (2.4-3.5); Glucose 83 mg/dL (70-105); Potassium 3.6 mmol/L (3.5-5.1); Protein, Total 6.5 g/dL (6.0-8.3); Sodium 140 mmol/L (136-145)
[2023-01-12] MEDS: Famotidine/PF 20 mg/2ml Vial SLOW IVP SCH ×2 (08:05→20:35)
[2023-01-12] MEDS: Thiamine 100 MG TAB PO SCH (08:05)
[2023-01-12] MEDS ORDERED: Furosemide 40 MG/4 ML VIAL SLOW IVP SCH (09:30)
[2023-01-12] MEDS: D5W-AA 4.25% with LYTES 1,000 ML IV SCH (10:38)
[2023-01-12] MEDS: Multivitamin W/ Minerals 1 TAB PO SCH (20:35)
[2023-01-12] MEDS: Folic Acid 1 MG TAB PO SCH (20:35)
[2023-01-13] MEDS: D5W-AA 4.25% with LYTES 1,000 ML IV SCH ×2 (04:54→22:08)
[2023-01-13 05:18] LABS: #Basophils 0.2 10x3/uL (0.0-0.2); #Eosinphils 0.2 10x3/uL (0.0-0.5); #Monocytes 1.2 10x3/uL (0.0-1.1); %Basophils 1.3 % (0.0-2.0); %Eosinophils 1.9 % (0.0-6.0); %Lymphocytes 32.7 % (18.0-47.0); %Monocytes 10.4 % (0.0-10.0); %Neutrophils 53.1 % (40.0-75.0); Hemoglobin 13.6 g/dL (13.5-17.5); Mean Corpuscular Hemoglobin 34.7 pg (27.0-33.0); Mean Corpuscular Volume 99.2 fl (81.2-95.1); Mean Platelet Volume 9.8 fl (7.4-10.4); Platelet Count 572 10x3/uL (150-450); RBC Distribution Width 16.6 % (11.5-14.5); Red Blood Cell (RBC) Count 3.92 10x6/uL (4.32-5.72); White Blood Cell (WBC) Count 11.3 10x3/uL (3.5-10.5)
[2023-01-13 05:33] LABS: ALT (SGPT) 51 U/L (8-55); AST (SGOT) 95 U/L (5-34); Albumin 3.3 g/dL (3.5-5.0); Alkaline Phosphatase 122 U/L (40-110); Anion Gap 14 mmol/L (10-20); BUN (Urea Nitrogen) 12 mg/dL (8.4-25.7); Bilirubin, Total 1.4 mg/dL (0.2-1.2); Calc. Creatinine Clearance 167 mL/min (70-130); Calcium 8.7 mg/dL (7.8-10.44); Carbon Dioxide 22 mmol/L (22-29); Chloride 107 mmol/L (98-107); Estimated GFR 115; Globulin 3.9 g/dL (2.4-3.5); Glucose 105 mg/dL (70-105); Potassium 3.7 mmol/L (3.5-5.1); Protein, Total 7.2 g/dL (6.0-8.3); Sodium 139 mmol/L (136-145)
[2023-01-13] MEDS: Famotidine/PF 20 mg/2ml Vial SLOW IVP SCH ×2 (08:14→22:10)
[2023-01-13] MEDS: Furosemide 40 MG/4 ML VIAL SLOW IVP SCH (08:14)
[2023-01-13] MEDS: Thiamine 100 MG TAB PO SCH (08:15)
[2023-01-13] MEDS: Folic Acid 1 MG TAB PO SCH (22:10)
[2023-01-13] MEDS: Multivitamin W/ Minerals 1 TAB PO SCH (22:10)
[2023-01-14 04:07] LABS: #Basophils 0.2 10x3/uL (0.0-0.2); #Eosinphils 0.2 10x3/uL (0.0-0.5); #Monocytes 1.1 10x3/uL (0.0-1.1); #Neutrophils 5.3 10x3/uL (1.5-8.4); %Basophils 1.5 % (0.0-2.0); %Eosinophils 1.4 % (0.0-6.0); %Lymphocytes 39.2 % (18.0-47.0); %Monocytes 9.5 % (0.0-10.0); %Neutrophils 47.7 % (40.0-75.0); Hemoglobin 14.4 g/dL (13.5-17.5); Mean Corpuscular HGB CONC 34.4 g/dL (32.0-36.0); Mean Corpuscular Hemoglobin 34.2 pg (27.0-33.0); Mean Corpuscular Volume 99.5 fl (81.2-95.1); Mean Platelet Volume 10.3 fl (7.4-10.4); Platelet Count 603 10x3/uL (150-450); RBC Distribution Width 16.2 % (11.5-14.5); Red Blood Cell (RBC) Count 4.21 10x6/uL (4.32-5.72); White Blood Cell (WBC) Count 11.2 10x3/uL (3.5-10.5)
[2023-01-14 04:37] LABS: ALT (SGPT) 71 U/L (8-55); AST (SGOT) 91 U/L (5-34); Albumin 3.6 g/dL (3.5-5.0); Alkaline Phosphatase 120 U/L (40-110); Anion Gap 12 mmol/L (10-20); BUN (Urea Nitrogen) 13 mg/dL (8.4-25.7); Bilirubin, Total 1.2 mg/dL (0.2-1.2); Calc. Creatinine Clearance 162 mL/min (70-130); Calcium 9.2 mg/dL (7.8-10.44); Carbon Dioxide 24 mmol/L (22-29); Chloride 107 mmol/L (98-107); Estimated GFR 114; Globulin 3.9 g/dL (2.4-3.5); Glucose 106 mg/dL (70-105); Potassium 3.7 mmol/L (3.5-5.1); Protein, Total 7.5 g/dL (6.0-8.3); Sodium 139 mmol/L (136-145)
[2023-01-14] MEDS: Thiamine 100 MG TAB PO SCH (09:39)
[2023-01-14] MEDS: Furosemide 40 MG/4 ML VIAL SLOW IVP SCH (09:39)
[2023-01-14] MEDS: Famotidine/PF 20 mg/2ml Vial SLOW IVP SCH (09:39)
[2023-01-14] MEDS ORDERED: Acetaminophen 325 MG TAB PO PRN (13:37)
[2023-01-14] MEDS ORDERED: D5W-AA 4.25% with LYTES 1,000 ML IV SCH (13:38)
[2023-01-14] MEDS: Folic Acid 1 MG TAB PO SCH (21:09)
[2023-01-14] MEDS: Famotidine 20 MG TAB PO SCH (21:09)
[2023-01-14] MEDS: Multivitamin W/ Minerals 1 TAB PO SCH (21:09)
[2023-01-15 03:43] LABS: #Basophils 0.2 10x3/uL (0.0-0.2); #Eosinphils 0.2 10x3/uL (0.0-0.5); #Monocytes 1.1 10x3/uL (0.0-1.1); #Neutrophils 4.8 10x3/uL (1.5-8.4); %Basophils 1.7 % (0.0-2.0); %Eosinophils 1.3 % (0.0-6.0); %Lymphocytes 43.5 % (18.0-47.0); %Monocytes 9.5 % (0.0-10.0); %Neutrophils 43.4 % (40.0-75.0); Hemoglobin 14.6 g/dL (13.5-17.5); Mean Corpuscular HGB CONC 34.6 g/dL (32.0-36.0); Mean Corpuscular Hemoglobin 34.8 pg (27.0-33.0); Mean Corpuscular Volume 100.7 fl (81.2-95.1); Mean Platelet Volume 10.1 fl (7.4-10.4); Platelet Count 585 10x3/uL (150-450); RBC Distribution Width 16.1 % (11.5-14.5); Red Blood Cell (RBC) Count 4.19 10x6/uL (4.32-5.72); White Blood Cell (WBC) Count 11.2 10x3/uL (3.5-10.5)
[2023-01-15 03:59] LABS: ALT (SGPT) 89 U/L (8-55); AST (SGOT) 95 U/L (5-34); Albumin 3.6 g/dL (3.5-5.0); Alkaline Phosphatase 113 U/L (40-110); Anion Gap 15 mmol/L (10-20); BUN (Urea Nitrogen) 12 mg/dL (8.4-25.7); Bilirubin, Total 1.1 mg/dL (0.2-1.2); Calc. Creatinine Clearance 138 mL/min (70-130); Calcium 9.2 mg/dL (7.8-10.44); Carbon Dioxide 18 mmol/L (22-29); Chloride 109 mmol/L (98-107); Estimated GFR 115; Globulin 4.1 g/dL (2.4-3.5); Glucose 104 mg/dL (70-105); Potassium 3.9 mmol/L (3.5-5.1); Protein, Total 7.7 g/dL (6.0-8.3); Sodium 138 mmol/L (136-145)
[2023-01-15] MEDS ORDERED: Furosemide 40 MG TAB PO SCH (07:30)
[2023-01-15] MEDS: Thiamine 100 MG TAB PO SCH (08:11)
[2023-01-15] MEDS: Famotidine 20 MG TAB PO SCH (08:12)
[2023-01-15 10:06] VITALS: BMI 24.6
[2023-01-15 16:16] VITALS: BP 126/77
== END 2023-01-15 18:10 | DRG 870 ==
LOC: CSHERS 18:58 → INTOOBSV 20:55 → CSHERHOLD 20:55 → CSHTELE 01-03 12:21 → OBSVTOIN 01-03 14:24 → CSHIMCU 01-04 01:39
PROVIDERS: ADMIT Family Medicine; ATTEND Family Medicine
PROC: 3E03329 Introduction of Other Anti-infective into Peripheral Vein, Percutaneous Approach (ICD-10-PCS; principal; 2023-01-03)
PROC: 4A133R1 Monitoring of Arterial Saturation, Peripheral, Percutaneous Approach (ICD-10-PCS; 2023-01-03)
PROC: 5A1955Z Respiratory Ventilation, Greater than 96 Consecutive Hours (ICD-10-PCS; 2023-01-04)
PROC: 0BH17EZ Insertion of Endotracheal Airway into Trachea, Via Natural or Artificial Opening (ICD-10-PCS; 2023-01-04)
PROC: 5A09357 Assistance with Respiratory Ventilation, Less than 24 Consecutive Hours, Continuous Positive Airway Pressure (ICD-10-PCS; 2023-01-04)
PROC: 5A0935A Assistance with Respiratory Ventilation, Less than 24 Consecutive Hours, High Flow/Velocity Cannula (ICD-10-PCS; 2023-01-04)
PROC: 02H633Z Insertion of Infusion Device into Right Atrium, Percutaneous Approach (ICD-10-PCS; 2023-01-05)
PROC: B548ZZA Ultrasonography of Superior Vena Cava, Guidance (ICD-10-PCS; 2023-01-05)
PROC: 3E043XZ Introduction of Vasopressor into Central Vein, Percutaneous Approach (ICD-10-PCS; 2023-01-05)
DX: A41.9 Sepsis, unspecified organism (principal); J69.0 Pneumonitis due to inhalation of food and vomit; J96.01 Acute respiratory failure with hypoxia; R65.21 Severe sepsis with septic shock; E87.1 Hypo-osmolality and hyponatremia; N39.0 Urinary tract infection, site not specified; E87.20 Acidosis, unspecified; F10.231 Alcohol dependence with withdrawal delirium; J90 Pleural effusion, not elsewhere classified; K76.0 Fatty (change of) liver, not elsewhere classified; K59.00 Constipation, unspecified; E87.6 Hypokalemia; R21 Rash and other nonspecific skin eruption; I10 Essential (primary) hypertension; Z20.822 Contact with and (suspected) exposure to COVID-19; Z79.899 Other long term (current) drug therapy; Z87.891 Personal history of nicotine dependence; Z82.49 Family history of ischemic heart disease and other diseases of the circulatory system; Z83.3 Family history of diabetes mellitus; Z80.49 Family history of malignant neoplasm of other genital organs; Z91.030 Bee allergy status
CPT/HCPCS: 36415; 36416; 36600; 70450; 71045; 71275; 74018; 74230; 76705; 80048; 80053; 80076; 80202; 81003; 81015; 82330; 82375; 82550; 82805; 83605; 83690; 83735; 83880; 83930; 83935; 84145; 84300; 84443; 84484; 85025; 85027; 85049; 85300; 85362; 85379; 85384; 85610; 85730; 86038; 86225; 86480; 86580; 86780; 86803; 87040; 87070; 87086; 87116; 87205; 87206; 87324; 87340; 87389; 87449; 87633; 87798; 93005; 93010; 93306; 94002; 94003; 94640; 94660; 94760; 94762; 96365; 96366; 96367; 96372; 96375; 96376; G0378; J1200; J1650; J1885; J1940; J1956; J2060; J2543; J2704; J3370; J3411; J3480; J3490; J7042; J7050; J7120; J7620; Q9967; S0028